=== PATIENT | female | born 2000 | race Caucasian/White ===

== ENCOUNTER 2024-07-10 16:39 | Emergency (ER) | payer SELFPAY ==
[2024-07-10 16:58] VITALS: BP 123/78; PULSE 77; RESP 18; TEMP 98.2; BMI 34.0
[2024-07-10] MEDS ORDERED: ONDANSETRON *ODT* 4 MG TABLET ONE (17:50)
[2024-07-10] MEDS: ONDANSETRON *ODT* 4 MG TABLET SL ONE (18:02)
[2024-07-10 18:26] LABS: HCG,QUALITATIVE URINE Positive
[2024-07-10 18:30] LABS: EPI CELLS >36 /uL (0-25.1); HYALINE CASTS 0 /uL (0-3.1); PH,URINE 6.5 (5.0-8.0); URINE APPEARANCE CLOUDY; URINE BACTERIA 835 /uL (0-1359); URINE BILIRUBIN NEGATIVE (NEGATIVE); URINE COLOR YELLOW; URINE GLUCOSE (UA) NEGATIVE (NEGATIVE); URINE KETONE 4+ (NEGATIVE); URINE LEUK ESTERASE TRACE (NEGATIVE); URINE NITRITE NEGATIVE (NEGATIVE); URINE PROTEIN 1+ (NEGATIVE); URINE RBC 22 /uL (0-23.9); URINE WBC 18 /uL (0-25.8)
== END 2024-07-10 21:15 | disposition left against medical advice (07) ==
LOC: JER 16:39
DX: O21.9 Vomiting of pregnancy, unspecified (principal); O99.891 Other specified diseases and conditions complicating pregnancy; J34.89 Other specified disorders of nose and nasal sinuses; O99.280 Endocrine, nutritional and metabolic diseases complicating pregnancy, unspecified trimester; R82.4 Acetonuria; Z20.822 Contact with and (suspected) exposure to COVID-19; Z3A.00 Weeks of gestation of pregnancy not specified
CPT/HCPCS: 0241U-QW; 81003; 84703; 87086; 99283-25; Q0162